=== PATIENT | male | born 1995 | race Caucasian/White ===

== ENCOUNTER 2017-07-13 13:02 | Outpatient (CLI) | payer OTHER ==
--- NOTE | 2017-07-13 16:44 | MRI Report ---
EXAM: LEFT KNEE MRI WITHOUT CONTRAST EXAM DATE: 07/13/2017 02:25 PM. CLINICAL HISTORY: Pain in left knee. COMPARISON: None. TECHNIQUE: Multiplanar, multisequence T1-weighted and fluid-sensitive sequences of the knee without c ontrast. Other: None. FINDINGS: Cruciate Ligaments: The anterior cruciate ligament appears thin with some heterogenous signal adjacen t to the tibial attachment. The posterior cruciate ligament appears normal. Medial Meniscus: Free margin blunting of the body and anterior horn. There is some deficiency within the anterior horn towards the midline but no discrete tear identified. Otherwise intact. No meniscal cyst formation. Lateral Meniscus: Intact. No tear is identified. Collateral Ligaments: The medial and fibular collateral ligaments appear normal. Bones and Articular Surfaces: Mild cartilage thinning at the weightbearing medial compartment. IMPRESSION: 1. Some thinning of the anterior cruciate ligament and heterogenous signal associated with the lower fibers and tibial attachment. This may represent some scarring from previous partial tear. Visualized fibers appear intact with normal orientation. 2. Some deficiency of the anterior horn medial meniscus. Potentially there may have been previous tea r with some degeneration. Currently no discrete tear is identified but there is slight blunting of th e body and anterior horn. [facility] SE[facility] Referring Provider Line: [phone] SITE ID: [id number]
== END 2017-07-13 13:03 | disposition home or self-care (01) ==
LOC: DI 13:02
PROVIDERS: ATTEND Orthopaedic Surgery
DX: M25.562 Pain in left knee (principal)

== ENCOUNTER 2018-09-08 07:35 | Outpatient (CLI) | payer OTHER ==
--- NOTE | 2018-09-10 09:01 | MRI Report ---
Reason: SPRAIN OF ANTERIOR CRUCIATE LIGAMENT OF LEFT KNEE Procedure Date: 09/08/2018 Accession Number: [id number] / [id number] Procedure: MRI - Knee LT W/O CPT Code: FULL RESULT: EXAM: LEFT KNEE MRI WITHOUT CONTRAST EXAM DATE: 09/08/2018 08:58 AM. CLINICAL HISTORY: Sprain of anterior cruciate ligament of left knee. COMPARISON: MRI 07/13/2017. TECHNIQUE: Multiplanar, multisequence T1-weighted and fluid-sensitive sequences of the knee without contrast. Other: None. FINDINGS: Bones: New subtle impaction fractures anterior aspect lateral femoral condyle, posterolateral aspect lateral tibial plateau, posterior aspect medial tibial plateau and to a lesser extent medial margin medial femoral condyle. These may be subacute. Postsurgical changes of anterior cruciate ligament reconstruction. Small amount of fluid-sensitive hyperintense signal surrounds the graft in the femoral tunnel with mild prominence of the femoral tunnel measuring 1.2 cm transverse. Articular Cartilage: Shallow partial-thickness cartilage loss central aspect medial compartment, similar. No focal defect. Medial Meniscus: Mild blunting at the free edge anterior horn and body, similar. New subtle peripheral vertical tear contacts the inferior articular surface posterior horn. Lateral Meniscus: New fluid-sensitive hyperintense signal between the posterior margin posterior horn and the ligament of Ghotra. Cruciate Ligaments: Diffuse edema and distortion in the anterior cruciate ligament graft. A few fibers may remain intact. Ovoid region of isointense signal extends into the anterior intercondylar notch measuring 1.7 x 1.6 x 1.1 cm, AP by transverse by craniocaudal. A component of this is likely due to torn fibers. Posterior cruciate ligament intact. Collateral Ligaments: The medial collateral and lateral collateral ligamentous structures are intact. Tendons: The quadriceps, patellar, semimembranosus, and popliteus tendons are unremarkable. Musculature: No edema or fatty atrophy. Other: Large joint effusion with synovitis. Mild thickening of the suprapatellar plica. Moderate popliteal cyst with leak, new. No loose bodies. The medial and lateral retinacula are intact. Subcutaneous soft tissues are unremarkable. Postsurgical changes in Hoffa's fat pad. Mild edema throughout the anterior fat pads. IMPRESSION: 1. Near complete to complete disruption anterior cruciate ligament graft. Cystic changes in the femoral tunnel, concerning for loosening. 2. 1.7 cm focus of torn ligament fibers and possible arthrofibrosis in the anterior intercondylar notch. 3. New subtle peripheral vertical tear posterior horn medial meniscus. Blunting/fraying redemonstrated at the anterior horn and body. 4. Peripheral vertical tear versus meniscocapsular separation posterior margin posterior horn lateral meniscus at the junction with the ligament of Ghotra. 5. Large joint effusion with synovitis. Thickening of the suprapatellar plica. 6. Moderate popliteal cyst with leak. 7. Subtle impaction fractures lateral and to a lesser extent medial compartments. These may be acute to subacute. [facility]
== END 2018-09-08 07:36 | disposition home or self-care (01) ==
LOC: DI 07:35
PROVIDERS: ATTEND Physician Assistant
DX: S83.512A Sprain of anterior cruciate ligament of left knee, initial encounter (principal); T81.33XA Disruption of traumatic injury wound repair, initial encounter; S83.242A Other tear of medial meniscus, current injury, left knee, initial encounter; M66.0 Rupture of popliteal cyst; M25.462 Effusion, left knee; M65.9 Synovitis and tenosynovitis, unspecified

== ENCOUNTER 2020-03-10 08:52 | Day surgery (SDC) | payer OTHER ==
[~2020-03-10 08:52] MED LIST: CEFAZOLIN SODIUM IN 0.9 % NACL 2 GM/100 ML BAG IV ONE; LACTATED RINGERS 1,000 ML IV ONE
[2020-03-10] MEDS ORDERED: ONDANSETRON 4 MG/2 ML VIAL IVP ONE (08:53)
[2020-03-10] MEDS ORDERED: MIDAZOLAM 2 MG/2 ML VIAL IVP ONE (08:53)
[2020-03-10] MEDS ORDERED: ePHEDrine 50 MG/ML VIAL IVP ONE (08:53)
[2020-03-10] MEDS ORDERED: fentaNYL 250 MCG/5 ML VIAL IVP ONE (08:53)
[2020-03-10] MEDS ORDERED: PROPOFOL 200 MG/20 ML VIAL IVP ONE (08:53)
[2020-03-10] MEDS ORDERED: ePHEDrine 50 MG/ML VIAL IVP PRN (09:51)
[2020-03-10] MEDS ORDERED: METOCLOPRAMIDE 10 MG/2 ML VIAL IVP PRN (09:51)
[2020-03-10] MEDS ORDERED: ONDANSETRON 4 MG/2 ML VIAL IVP PRN ×2 (09:51→14:01)
[2020-03-10] MEDS ORDERED: HYDROmorphone 0.5 MG/0.5 ML SYRINGE IVP PRN (09:51)
[2020-03-10] MEDS ORDERED: NALOXONE 0.4 MG/ML VIAL IVP PRN (09:51)
[2020-03-10] MEDS ORDERED: ATROPINE ABBOJECT 1 MG/10 ML SYRINGE IVP PRN (09:51)
[2020-03-10] MEDS ORDERED: MORPHINE 2 MG/ML CARPUJECT IVP PRN (09:51)
[2020-03-10] MEDS ORDERED: fentaNYL 100 MCG/2 ML VIAL IVP PRN (09:51)
[2020-03-10] MEDS ORDERED: LACTATED RINGERS 1,000 ML IV SCH (10:00)
--- NOTE | 2020-03-10 11:20 | ANESTHESIA ---
Pre-Anesthesia VS, & Labs - Diagnosis left knee acl tear - Procedure left knee ACL revision of reconstruction. Vital Signs: Temp Pulse Resp BP Pulse Ox 36.4 C L 64 20 110/70 99 03/10/20 09:05 03/10/20 09:05 03/10/20 09:05 03/10/20 09:05 03/10/20 09:05 Height: 5 ft 10 in Weight (kg): 74.84 kg Body Mass Index: 23.6 BMI Classification: Healthy weight - NPO >8 hours Home Medications and Allergies Home Medications: Ambulatory Orders No Known Home Medications 03/02/20 Active Medications Atropine Sulfate () 0.5 mg IVP Q5M PRN PRN Reason: Bradycardia Stop: 03/11/20 09:51 Ephedrine Sulfate () 10 mg IVP Q5M PRN PRN Reason: HYPOTENSION Stop: 03/11/20 09:51 Fentanyl (Fentanyl) 25 - 50 mcg IVP Q5M PRN PRN Reason: BREAKTHROUGH PAIN (2nd Choice) Stop: 03/11/20 09:51 Hydromorphone HCl (Dilaudid Inj Syringe) 0.2 - 0.6 mg IVP Q5M PRN PRN Reason: PAIN (First Choice) Stop: 03/11/20 09:51 Lactated Ringer's (Lr) 1,000 mls @ 100 mls/hr IV .Q10H LINDA Stop: 03/10/20 19:59 Metoclopramide HCl (Reglan Inj) 10 mg IVP Q6HR PRN PRN Reason: N/V not relieved by Zofran Morphine Sulfate (Morphine (Carpuject)) 2 - 4 mg IVP Q5M PRN PRN Reason: PAIN (3rd Choice) Stop: 03/11/20 09:51 Naloxone HCl (Narcan) 0.1 mg IVP Q2M PRN PRN Reason: RESP RATE <8 Stop: 03/11/20 09:51 Ondansetron HCl (Zofran Inj) 4 mg IVP ONCE PRN PRN Reason: N/V (First Choice) Stop: 03/11/20 09:51 No Known Home Medications 03/02/20 Allergies/Adverse Reactions: Allergies Allergy/AdvReac Type Severity Reaction Status Date / Time No Known Drug Allergies Allergy Verified 03/02/20 10:29 Anes History & Medical History - Anesthetic History Anesthesia Complications: reports: No previous complications - Medical History Cardiovascular: reports: None Pulmonary: reports: None Gastrointestinal: reports: None Urinary: reports: None Musculoskeletal: reports: Other Endocrine/Autoimmune: reports: None Skin: reports: None - Surgical History Orthopedic: ACL reconstruction Exam General: Alert Dental: WNL, Other (one missing) Mouth Opening: Greater than 4 Fingerbreadths Neck Mobility: Normal Mallampati classification: I Respiratory: Lungs clear Cardiovascular: Regular rate Plan Anesthesia Type: General Consent for Procedure(s) Verified and Reviewed: Yes Code Status: Attempt Resuscitation ASA classification: 1-Healthy patient Is this case an emergency?: No
[2020-03-10] MEDS ORDERED: BUPIVACAINE 0.25% PF 30 ML VIAL ONE (11:48)
[2020-03-10] MEDS ORDERED: EPINEPHrine 1 MG/ML AMP ONE (11:48)
[2020-03-10] MEDS ORDERED: EPINEPHrine 1 MG/ML AMP IVP ONE ×2 (13:02)
[2020-03-10] MEDS ORDERED: BUPIVACAINE 0.25% PF 30 ML VIAL SUBQ ONE ×2 (13:02)
[2020-03-10] MEDS ORDERED: LACTATED RINGERS 200 ML IV ONE (13:58)
[2020-03-10] MEDS ORDERED: oxyCODONE 5 MG TABLET PO PRN (14:01)
--- NOTE | 2020-03-10 14:18 | OPERATIVE REPORT ---
Operative Report - Other Other Information/Narrative: Date of Surgery: 10 March 2020 Pre-Op Diagnosis: Left ACL graft rupture. Chronic left bucket-handle medial meniscus tear Procedure: Left knee arthroscopy with remnant graft excision. Subtotal medial meniscectomy Postop Diagnosis: Same Primary Surgeon: Nathan Srivastava Secondary Surgeon: None Complications: None Tourniquet Time: 45 EBL: 5 mL Indication For Surgery: 24-year-old male who previously had an ACL reconstruction with hamstring autograft by me in August 2017. Tunnels were 8 mm and a 9 mm graft bolt and tight rope were used. After having an excellent recovery he sustained another twisting injury to the knee in July 2018 tearing his ACL graft. 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 In August [address] scan showed a 9 mm femoral tunnel to be in good position and a 10 mm tibial tunnel to be in good position. Just after his deployment ended in April 2019 he sustained another injury to the knee resulting in a large popping sensation and the inability to straighten the knee. After working through things for a period of time he was unable to straighten the knee. This is when he sustained his meniscus tear. He was seen in my clinic about a month ago to schedule his surgery. I discussed the various options to include meniscus repair or debridement as well as 1 stage versus two-stage ACL reconstruction. We discussed the potential risks of having a meniscus deficient knee and the potential value of a meniscus transplant. The risks, benefits, and alternatives were discussed. Risks include pain, bleeding, infection, damage to nearby structures and cartilage, lack of symptom relief, need for further surgery, DVT, PE, stroke, and . Written consent was obtained. Examination Under Anesthesia: Flexion equal to the contralateral side, extension is 5 degrees short of the contralateral side. Stable dial at 30 & 90 degrees. Stable to varus and valgus stressing at 0 & 30 degrees. Unstable Kaye. Unstable Pivot shift. No mechanical sensation Arthroscopic Findings: Loose bodies -none Synovium -slightly injected Patella cartilage -normal Trochlear cartilage -normal Medial femoral condyle cartilage -normal. Very early marginal osteophyte formation is seen Medial tibial plateau cartilage -normal Medial meniscus -the entire meniscus was torn off the capsule and displaced into the notch. It could not be reduced. The tissue was of low quality and had multiple additional tears within it. The meniscus was excised leaving a small rim of meniscus tissue at the periphery Anterior cruciate ligament -graft was torn and a portion of it was scarred to the PCL, this was excised Posterior cruciate ligament -normal Lateral femoral condyle cartilage -normal Lateral tibial plateau cartilage -normal Lateral meniscus -slight fraying of the free edge which was lightly debrided, root was intact. Procedure in Detail: The patient was met in the pre-operative hold area on the day of the procedure. The operative extremity was signed and questions were answered. The patient was brought to the operating room and a general anesthetic was administered. Supine position was used and bony prominences were padded. An examination under anesthesia was performed. Standard prepping and draping was performed. A time out confirmed patient identification, laterality, procedure, allergies, antibiotics, and images. An Esmarch was used to exsanguinate the limb and the tourniquet was elevated to 250 mmHg. A standard diagnostic arthroscopy of the knee was performed through anterolateral and anteromedial portal sites. The anteromedial portal was created under direct visualization after localizing with a spinal needle. The findings can be found above. I then proceeded to use a biter and shaver to remove the large bucket-handle meniscus tear. I took care to leave the small rim of meniscus tissue around the periphery and to keep the anterior and posterior roots intact. I then used a shaver and electrocautery device to excise any remnant ACL graft and clearly identify the margins of the femoral and tibial tunnels. The femoral tunnel at a 2 mm posterior wall and was just off the articular cartilage and back. The tibial tunnel was in the proper position centered at the posterior border of the anterior horn of the lateral meniscus. Because the medial meniscus was nearly entirely excised I then made the decision to that he should be evaluated by a surgeon who performs a meniscus transplant surgery. If the surgeon thinks that he is a good candidate for meniscus transplant then a 1 stage ACL reconstruction with meniscus transplant is recommended. If they do not think he is a good candidate then he can return to me for his 1 stage ACL reconstruction using patellar tendon autograft. Final images were taken and all arthroscopic fluid and instruments were removed from the knee. The incisions were closed with buried monocryl sutures. Steri strips were applied. 10cc of 0.25% Marcaine without epinephrine was injected near the portal sites. A sterile dressing and compression stocking was placed. The patient was awakened and transferred to recovery in stable condition.
[2020-03-10 14:51] VITALS: BP 120/76
--- NOTE | 2020-03-10 17:57 | ANESTHESIA POST OP EVALUATION ---
Anesthesia Post Eval - Post Anesthesia Eval Vitals: Last Vital Signs Temp 36.6 C 03/10/20 14:50 Pulse 64 03/10/20 14:50 Resp 16 03/10/20 14:50 BP 120/76 03/10/20 14:50 Pulse Ox 99 03/10/20 14:50 CV Function Including HR & BP: positive: Stable Pain Control: positive: Satisfactory Nausea & Vomiting: positive: Negative Mental Status: positive: Baseline Respiratory Status: Airway Patent Hydration Status: Satisfactory Anesthesia Complications: positive: None
== END 2020-03-10 08:53 | disposition home or self-care (01) ==
LOC: SDS 08:52
PROVIDERS: ATTEND Orthopaedic Surgery
DX: S83.512A Sprain of anterior cruciate ligament of left knee, initial encounter (principal); S83.212A Bucket-handle tear of medial meniscus, current injury, left knee, initial encounter